=== PATIENT | male | born 1940 | race Caucasian/White ===

== ENCOUNTER 2024-01-27 13:00 | Outpatient (RCR) | payer MEDICARE, SELFPAY | END 2024-02-03 10:40 | disposition home or self-care (01) | LOC: PT 13:00 | PROVIDERS: Visit Provider Orthopaedic Surgery | DX: M17.12 Unilateral primary osteoarthritis, left knee (principal); Z96.652 Presence of left artificial knee joint | CPT/HCPCS: 97010; 97014; 97110; 97140; 97163; 97530; G0283 ==

== ENCOUNTER 2024-11-09 11:48 | Day surgery (SDC) | payer MEDICARE, SELFPAY ==
[2024-11-09 12:06] VITALS: BMI 26.6
[2024-11-09 12:20] VITALS: BP 148/76; PULSE 72; RESP 18; TEMP 36.1; O2SAT 99
[2024-11-09 13:27] VITALS: O2SAT 100
--- NOTE | 2024-11-09 13:31 | P.HP_ITS ---
History of Present Illness *Admission Date: 11/09/24 *Reason for visit:: History of adenomatous polyps *History of present illness: Mr. Torres is an 84-year-old gentleman who is here for surveillance colonoscopy secondary to a personal history of adenomatous colon polyps. The examination is deemed medically necessary for surveillance colonoscopy. The patient has been seen, interviewed and examined prior to the procedure by both myself and the anesthesia provider. [facility] Disclaimer: The information contained in this section may have been updated after the patient was seen, as this information can be updated by other users. Medical History (Updated 11/09/24 @ 13:32 by Mahesh Benavidez II, MD) History of transesophageal echocardiography (RO) History of cardioversion Biceps tendon tear Kidney stones History of hemorrhoids Presence of Watchman left atrial appendage closure device HLD (hyperlipidemia) HTN (hypertension) Hypothyroid A-fib Surgical History (Updated 11/09/24 @ 12:36 by Yue Campos RN) Hx of colonoscopy History of total left knee replacement History of surgery H/O eye surgery History of surgery History of surgery Hx of eye surgery Hx of transurethral resection of prostate History of right cataract surgery History of left cataract surgery History of surgery History of colon surgery History of hernia surgery Family History (Updated 11/09/24 @ 12:19 by Waldemar King RN) Other Family history of diabetes mellitus Family history of emphysema Social History (Updated 11/09/24 @ 12:19 by Waldemar King RN) Smoking Status: Never smoker alcohol intake: never current occupational status: retired Travel in the last 8 weeks: None Have you lived/traveled outside [place] in past 30 days?: No Contact w/someone who lives/traveled outside [place] past 30 days?: No Exposure to someone with infectious disease in past 14 days?: No Do you have a fever (greater than 100.4 F or 38 C)?: No Have you tested positive for COVID-19: Yes Exposed to someone with COVID-19 in past 14 days?: No Do you have a sore throat?: No Do you have a cough?: No Do you have any weakness?: No Are you experiencing any nausea/vomitting?: No Do you have any diarrhea?: No Are you experiencing any unusual bleeding?: No Do you have any muscle aches/pain?: No Do you have any abdominal pain?: No Are you experiencing loss of taste or smell?: No Review of Systems Review of Systems Review of systems (narrative): Negative *Cardiovascular Comments: Negative *Gastrointestinal Comments: Negative *Genitourinary Comments: Negative *Musculoskeletal Comments: Negative *Neurologic Comments: Negative Meds Home Medications and Allergies Home Medications ?Medication ?Instructions ?Recorded ?Confirmed ?Type alendronate 70 mg tablet 70 mg PO WEEKLY 11/09/24 11/09/24 History aspirin 81 mg tablet,delayed 81 mg PO DAILY 11/09/24 11/09/24 History release cholecalciferol (vitamin D3) 50 50 mcg PO DAILY 11/09/24 11/09/24 History mcg (2,000 unit) capsule (Vitamin D3) diltiazem HCl 180 mg capsule,24 180 mg PO DAILY 11/09/24 11/09/24 History hr,extended release famotidine 20 mg tablet 20 mg PO BID 11/09/24 11/09/24 History ferrous sulfate 325 mg (65 mg 325 mg PO BID 11/09/24 11/09/24 History iron) tablet glucosamine sulf dipot 1 cap PO DAILY 11/09/24 11/09/24 History chlr,msm,chond 550 mg-C 30 mg-nelida 1 mg capsule (Glucosamine Chondroitin) levothyroxine 125 mcg capsule 125 mcg PO DAILY 11/09/24 11/09/24 History krhjhamsxbvk-nfldhqqc-yxpusc tablet 1 tab PO DAILY 11/09/24 11/09/24 History olmesartan 40 mg tablet 40 mg PO DAILY 11/09/24 11/09/24 History omega-3 acid ethyl esters 1 gram 1 cap PO BID 11/09/24 11/09/24 History capsule (Lovaza) psyllium husk 0.4 gram capsule 0.4 g PO DAILY 11/09/24 11/09/24 History (Metamucil) rosuvastatin 20 mg tablet 20 mg PO DAILY 11/09/24 11/09/24 History vitamin A-vitamin C-vit E-min 1 tab PO DAILY 11/09/24 11/09/24 History tablet New Prescriptions to Start Prescriptions: Allergies Allergy/AdvReac Type Severity Reaction Status Date / Time No Known Allergies Allergy Verified 11/09/24 12:08 Exam Data for Last 24 hours Vital signs and Labs for Last 24 Hours: Temp Pulse Resp BP Pulse Ox O2 Del Method O2 Flow Rate 97.0 F L 72 18 148/76 H 99 Nasal Cannula 5 11/09/24 12:20 11/09/24 12:20 11/09/24 12:20 11/09/24 12:20 11/09/24 12:20 11/09/24 13:27 11/09/24 13:27 I & O for Last 24 hours: Intake & Output 11/06/24 11/07/24 11/08/24 11/09/24 23:59 23:59 23:59 23:59 Weight 175 lb *Routine HEENT Exam Head: Present normocephalic Eye: Present EOMI and PERRL ENT: Present mucous membranes moist *Routine Neck Exam Neck: Present supple *Routine Respiratory Exam Respiratory: Present CTA bilaterally *Routine Cardiovascular Exam Cardiovascular: Present RRR *Routine Abdominal Exam Abdominal: Present soft and normoactive bowel sounds; Absent tenderness *Routine Rectal Exam Rectal:: deferred *Routine Genitalia Exam Genitalia:: deferred *Routine Extremities Exam Extremities: Absent cyanosis, clubbing or edema *Routine Skin Exam Skin: Present warm; Absent rash *Routine Neurological Exam Neurological: Present alert and oriented X3 Assessment and Plan *Assessment and plan (1) Personal history of adenomatous and serrated colon polyps: Status: Acute Category: Medical Code(s): Z86.0101 - Personal history of adenomatous and serrated colon polyps Plan A/P: 1. Personal history of adenomatous colon polyps is the preprocedural diagnosis. The patient will be anesthetized/sedated using MAC sedation. The patient has been seen and examined. Cardiac and lung assessment prior to the examination is stable. Proceed with planned surveillance colonoscopy
--- NOTE | 2024-11-09 13:33 | HMH.PROCNOTE ---
[facility] Procedure Note Date: 11/09/24 Time: 13:50 Procedure Note:: Colonoscopy Procedure Report: Colonoscopy with cold snare polypectomy Endoscopist: Mahesh Benavidez II, MD Referring physician: Moiz Lobo MD [id number], [place] [address] Date of Procedure: November 09, 2024 Equipment: Olympus 190 variable stiffness pediatric colonoscope Sedation: MAC sedation Indication: Mr. Torres is an 84-year-old gentleman who is here for follow-up surveillance colonoscopy. He does have a personal history of adenomatous colon polyps and his last colonoscopy was 5 years ago and he had a few polyps removed at that time. He has had some iron deficiency. He is not on anticoagulation and had the Watchman procedure for his atrial fibrillation and came off of blood thinners. He reports no abdominal pain, weight loss, change in his bowel habits or rectal bleeding. He reports no family history of colon cancer. Procedure: Prior to the procedure, a history and physical exam was performed, and patient's medications and allergies were reviewed. The risks, benefits and alternatives of the sedation and procedure were discussed with the patient. All questions were answered and informed consent was obtained. The patient was brought to the procedure room. Patient identification and proposed procedure were verified by the physician and the nurse. The patient was placed in a left lateral decubitus position and the scope was passed under direct vision. Throughout the procedure, the patient's blood pressure, pulse, and oxygen saturations were monitored continuously. The colonoscopy was accomplished without difficulty. The patient tolerated the procedure well. Findings: On digital rectal examination there was normal rectal tone. There were no external hemorrhoids. The colonoscope was introduced through the anal canal to the rectum and advanced to the cecum. The ileocecal valve and appendiceal orifice were identified. The scope was advanced a short distance into the ileum which appeared grossly normal. The scope was then withdrawn into the colon. There were 3 polyps (ascending x 1 (4 mm) and transverse x 2 (10 and 17 mm)). These were removed via cold snare polypectomy. The remaining cecum, ascending and transverse colon and mucosa were grossly normal. There were scattered diverticuli throughout the descending and sigmoid colon (LEFT colon). The rectum itself was normal. Upon retroflexion within the rectum there were grade 1-2 internal hemorrhoids. The preparation was excellent throughout with Morehead Preparation Score of 9. The cecal time was 15 minutes. Impression: 1. Colonic polyps x 3 (with larger polyps 10 and 17 mm respectively) 2. Left-sided diverticulosis 3. Grade 1-2 internal hemorrhoids Plan: I will follow-up the polyp histology. The patient continues to have shoulder interval slightly larger and more advanced adenomatous polyps. I will discuss whether further surveillance is warranted. I would continue psyllium fiber supplementation on a maintenance basis.
[2024-11-09 13:53] VITALS: BP 90/53; PULSE 66; RESP 16; TEMP 36.1; O2SAT 98
--- NOTE | 2024-11-09 14:00 | P.PNANES_ITS ---
[facility] Disclaimer: The information contained in this section may have been updated after the patient was seen, as this information can be updated by other users. Medical History (Updated 11/09/24 @ 13:32 by Mahesh Benavidez II, MD) History of transesophageal echocardiography (RO) History of cardioversion Biceps tendon tear Kidney stones History of hemorrhoids Presence of Watchman left atrial appendage closure device HLD (hyperlipidemia) HTN (hypertension) Hypothyroid A-fib Surgical History (Updated 11/09/24 @ 12:36 by Yue Campos RN) Hx of colonoscopy History of total left knee replacement History of surgery H/O eye surgery History of surgery History of surgery Hx of eye surgery Hx of transurethral resection of prostate History of right cataract surgery History of left cataract surgery History of surgery History of colon surgery History of hernia surgery Family History (Updated 11/09/24 @ 12:19 by Waldemar King RN) Other Family history of diabetes mellitus Family history of emphysema Social History (Updated 11/09/24 @ 12:19 by Waldemar King RN) Smoking Status: Never smoker alcohol intake: never substance use type: denies use current occupational status: retired Travel in the last 8 weeks: None [facility] Anesthesia Checklist Patient Identification Patient Identification: Verbal (Name & ) Structural Data Admitted From: Home Planned Operative Procedure/s: colonoscopy NPO Status Verified Time NPO: 00:00 Airway Assessment Mallampati Score:: Class II C-Spine Mobility Assessed: Yes TMJ Mobility Assessed: Yes Dentition: Good Dentition Neurological Assessment Level of Consciousness: Awake, Alert and Appropriate Anesthesia Plan Anesthesia Risk discussed: Yes Anesthesia Plan: Verified ASA Class: II Anesthesia Type: MAC
[2024-11-09 14:03] VITALS: BP 104/57; PULSE 68; RESP 16; O2SAT 98
[2024-11-09 14:13] VITALS: BP 106/69; PULSE 60; RESP 16; O2SAT 96
[2024-11-09 14:23] VITALS: BP 113/74; PULSE 71; RESP 16; O2SAT 99
== END 2024-11-09 14:30 | disposition home or self-care (01) ==
PROVIDERS: PCP Internal Medicine; Visit Provider Internal Medicine Gastroenterology
PROC: 0DJD8ZZ Inspection of Lower Intestinal Tract, Via Natural or Artificial Opening Endoscopic (ICD-10-PCS; CPT 45378; principal; 2024-11-09 13:30)
DX: K63.5 Polyp of colon (principal); K57.30 Diverticulosis of large intestine without perforation or abscess without bleeding; K64.8 Other hemorrhoids; Z86.0101 Personal history of adenomatous and serrated colon polyps
CPT/HCPCS: 45385; 88305